=== PATIENT | female | born 1970 | race Two or more races ===

== ENCOUNTER 2023-12-10 07:23 | Emergency (ER) | payer OTHER ==
[~2023-12-10] VITALS: Ht 144.8 cm; Wt 57.7 kg
[2023-12-10 07:26] VITALS: BP 121/70; PULSE 94; RESP 18; TEMP 100.2
[2023-12-10] MEDS ORDERED: statin PO (07:41)
[2023-12-10] MEDS: ACETAMINOPHEN 500 MG TABLET PO ONE (07:50)
[2023-12-10] MEDS: PHENAZOPYRIDINE HCL 100 MG TABLET PO ONE (07:51)
[2023-12-10 08:16] LABS: APPEARANCE,URINE HAZY (CLEAR); BILIRUBIN,URINE NEGATIVE (NEGATIVE); COLOR,URINE YELLOW (YELLOW); GLUCOSE, URINE (UA) NEGATIVE (NEGATIVE); LEUKOCYTE ESTERASE ,URINE NEGATIVE (NEGATIVE); NITRATE,URINE NEGATIVE (NEGATIVE); OCCULT BLOOD,URINE MODERATE (NEGATIVE); PROTEIN,URINE TRACE mg/dL (NEGATIVE); SPECIFIC GRAVITIY, URINE 1.017 (1.003-1.030); UROBILINOGEN,URINE <=1.0 mg/dL (<=1.0)
[2023-12-10 08:22] LABS: ANION GAP 11 mmol/L (8-16); CALCIUM, TOTAL 9.9 mg/dL (8.8-10.5); CARBON DIOXIDE 24 mmol/L (22-29); CHLORIDE 101 mmol/L (98-107); CREATININE 0.43 mg/dL (0.60-1.30); GLOMERULAR FILTR. RATE CALC > 60 mL/min (>60); GLUCOSE,RANDOM 110 mg/dL (70-110); POTASSIUM 3.8 mmol/L (3.5-5.1); SODIUM SERUM 136 mmol/L (136-145); UREA NITROGEN, BLOOD 13 mg/dL (7-18)
[2023-12-10 08:26] LABS: WBC,URINE 0-2 /HPF (0-5)
[2023-12-10 08:27] LABS: BACTERIA,URINE Moderate /HPF (None Seen); YEAST,URINE Few /HPF (None Seen)
[2023-12-10 08:41] LABS: BASOPHILS % (AUTO) 0.3 % (0.0-2.0); EOSINOPHILS % (AUTO) 0 % (1.0-6.0); HEMATOCRIT 36.1 % (36-46); HEMOGLOBIN 11.9 g/dL (12.0-16.0); LYMPHOCYTES # (AUTO) 1.3 K/uL (1.0-4.8); LYMPHOCYTES % (AUTO) 10.6 % (22.0-44.0); MEAN CORPUSCULAR HEMOGLOBIN 28.1 pg (26.0-34.0); MEAN CORPUSCULAR VOLUME 85 fL (80-100); MONOCYTES # (AUTO) 0.9 K/uL (0.1-1.0); MONOCYTES % (AUTO) 7.4 % (2.0-9.0); NEUTROPHILS # (AUTO) 9.6 K/uL (1.8-7.7); NEUTROPHILS % (AUTO) 81.7 % (40.0-70.0); PLATELET COUNT (AUTO) 352 K/uL (150-450); RED BLOOD CELL COUNT(AUTO) 4.24 MIL/uL (4.00-5.20); RED CELL DISTRIBUTION WIDTH 14.2 % (11.5-14.5); WHITE BLOOD COUNT (AUTO) 11.8 K/uL (4.5-11.0)
[2023-12-10] MEDS ORDERED: IBUP-1554 PO (08:51)
[2023-12-10] MEDS ORDERED: ACET-66 PO (08:51)
[2023-12-10] MEDS ORDERED: CLOT21CR13 VG (08:51)
== END 2023-12-10 09:14 | disposition home or self-care (01) ==
LOC: EMS 07:23
DX: J06.9 Acute upper respiratory infection, unspecified (principal); M60.9 Myositis, unspecified; J02.9 Acute pharyngitis, unspecified; Z88.0 Allergy status to penicillin; Z88.6 Allergy status to analgesic agent; Z79.899 Other long term (current) drug therapy
CPT/HCPCS: 80048; 81001; 84703; 85025; 87086; 87186; 99283